=== PATIENT | female | born 1960 | race Caucasian/White ===

== ENCOUNTER 2017-05-01 12:38 | Emergency (ER) | payer OTHER ==
[~2017-05-01] VITALS: Ht 154.9 cm; Wt 72.6 kg
[~2017-05-01 12:38] MED LIST: ALBU90OI6 INH; ALPR.5 PO; Ambien5 MG PO; BACL10 PO; CODGUAEL PO; CYCL10 PO; DULO60; ESTR2; Flonase 0.05% N16 GM; HYDR-86 PO; HYDR1TAB94 PO; IBUP800; IBUP800 PO; META800 PO; Monodox100 MG PO; PROM25 PO; PSEU120ER PO; Percocet 5-3251 EACH PO; Prednisone10 MG PO; Prednisone20 MG PO; VICODIN HP 10-1 EACH; Zithromax250 MG PO; [UNRECOGNIZED DRUG - REMARK]
[2017-05-01] MEDS ORDERED: Norco 5-325 Ta1 EACH PO (13:38)
[2017-05-01] MEDS ORDERED: CRUTCH2 XX (13:38)
== END 2017-05-01 13:47 | disposition home or self-care (01) ==
LOC: ER 12:38
DX: S92.352A Displaced fracture of fifth metatarsal bone, left foot, initial encounter for closed fracture (principal); F32.9 Major depressive disorder, single episode, unspecified; Z88.5 Allergy status to narcotic agent; Z88.8 Allergy status to other drugs, medicaments and biological substances; Z79.899 Other long term (current) drug therapy; Z87.891 Personal history of nicotine dependence; W22.8XXA Striking against or struck by other objects, initial encounter
CPT/HCPCS: 29515; 73630; 96372; 99283; J1885

== ENCOUNTER → 2017-10-15 | Outpatient (CLI) | payer OTHER ==
[~2017-10-15] MED LIST changes: +CRUTCH2 XX; +Norco 5-325 Ta1 EACH PO
== END | disposition home or self-care (01) ==
LOC: LAB SHORT 12:04 → LAB EV 12:04
DX: S61.452A Open bite of left hand, initial encounter (principal)
CPT/HCPCS: 87070; 87075; 87077; 87185; 87205